=== PATIENT | female | born 1965 | race Hispanic/Latino ===

== ENCOUNTER 2022-04-06 20:07 | Emergency (ER) | payer MEDICARE, OTHER ==
[~2022-04-06] VITALS: Ht 154.9 cm; Wt 87.5 kg
[~2022-04-06 20:07] MED LIST: AMLODIPINE BESYL5 MG PO; FUROSEMIDE40 MG PO; LISINOPRIL10 MG PO; OMEPRAZOLE40 MG PO; PRAVASTATIN SOD20 MG PO
[2022-04-06] MEDS ORDERED: DIPHENHYDRAMINE HCL INJ 50 MG/ML VIAL IV ONE (21:30)
[2022-04-06] MEDS ORDERED: METHYLPREDNISOLONE SOD SUCC 125 MG/2ML VIAL IV ONE (21:30)
[2022-04-06 21:38] LABS: BASOPHILS % 0.6 % (0.0-1.0); EOSINOPHILS # (AUTO) 0.2 (0.0-0.4); EOSINOPHILS % 2.3 % (0.0-6.0); HEMATOCRIT 40.7 % (34.2-44.1); HEMOGLOBIN 13.2 g/dL (12.0-16.0); LYMPHOCYTES # (AUTO) 2.2 (1.0-3.2); MEAN CORPUSCULAR HEMOGLOBIN 30.8 pg (28-32); MEAN CORPUSCULAR HGB CONC 32.4 g/dL (31-35); MEAN CORPUSCULAR VOLUME 94.9 fL (81-99); MONOCYTES # (AUTO) 0.6 (0.2-0.8); MONOCYTES % 9.1 % (4.4-11.3); NEUTROPHILS # (AUTO) 3.4 (2.1-6.9); NEUTROPHILS % 53.7 % (38.7-80.0); PLATELET COUNT 268 x10e3/uL (140-360); RED BLOOD COUNT 4.29 x10e6/uL (3.6-5.1); RED CELL DISTRIBUTION WIDTH 12.5 % (11.7-14.4)
[2022-04-06 22:01] LABS: ANION GAP 14.4 mmol/L (8-16); CALCIUM 9.6 mg/dL (8.4-10.2); POTASSIUM 3.4 mmol/L (3.5-5.1)
== END 2022-04-06 22:28 | disposition home or self-care (01) ==
LOC: ER 20:16
DX: R21 Rash and other nonspecific skin eruption (principal); I10 Essential (primary) hypertension; E78.5 Hyperlipidemia, unspecified; Z79.899 Other long term (current) drug therapy
CPT/HCPCS: 36415; 80048; 85025; 99283

== ENCOUNTER 2022-04-07 06:49 | Observation (INO) | payer MEDICARE, OTHER ==
[~2022-04-07] VITALS: Ht 154.9 cm; Wt 86.2 kg
[2022-04-07] VITALS (7 sets, daily range): BP systolic 97–134; BP diastolic 65–73
[2022-04-07] MEDS ORDERED: GABAPENTIN 300 MG CAP ONE (07:17)
[2022-04-07] MEDS ORDERED: CELECOXIB 200 MG CAP ONE (07:17)
[2022-04-07] MEDS ORDERED: DEXAMETHASONE SOD PHOS 10 MG/1 ML VIAL ONE (07:17)
[2022-04-07] MEDS ORDERED: MORPHINE SULFATE/PF 1 MG/1 ML 10ML VIAL ONE (07:25)
[2022-04-07] MEDS ORDERED: TRANEXAMIC ACID 20 ML ONE (07:26)
[2022-04-07] MEDS ORDERED: SODIUM CHLORIDE 0.9% 500ML 500 ML ONE (07:26)
[2022-04-07] MEDS ORDERED: Vancomycin IV 1,000 MG ONE (07:26)
[2022-04-07] MEDS ORDERED: ROPIVACAINE 246.25 MG, EPINEPHRINE HCL 1:1000 1ML 0.5 MG, CLONIDINE HCL 0.08 MG, KETORO... INJ ONE ×5 (08:00)
[2022-04-07] MEDS ORDERED: HYDROCODONE/APAP 5MG-325MG TAB PO PRN (09:45)
[2022-04-07] MEDS ORDERED: HYDROCODONE/APAP 7.5MG-325MG 1 EA TAB PO PRN (09:45)
[2022-04-07] MEDS ORDERED: ZOLPIDEM TARTRATE 5 MG TAB PO PRN (09:45)
[2022-04-07] MEDS ORDERED: DIPHENHYDRAMINE HCL INJ 50 MG/ML VIAL IV PRN (09:45)
[2022-04-07] MEDS ORDERED: ONDANSETRON HCL INJ 2MG/ML 2ML 2 MG/ML VIAL IV PRN (09:45)
[2022-04-07] MEDS ORDERED: ACETAMINOPHEN 650 MG SUPP PR PRN (09:45)
[2022-04-07] MEDS ORDERED: DOCUSATE SODIUM 100 MG CAP PO PRN (09:45)
[2022-04-07] MEDS ORDERED: SODIUM CHLORIDE 0.9% 1000ML 1,000 ML IV SCH (11:30)
[2022-04-07] MEDS ORDERED: MIDAZOLAM HCL 2 MG/2 ML VIAL ONE (12:37)
[2022-04-07] MEDS ORDERED: FENTANYL CITRATE/PF 100MCG/2 ML INJ ONE (12:37)
[2022-04-07] MEDS ORDERED: DEXAMETHASONE SOD PHOS INJ 4 MG/ML SDV ONE (13:53)
[2022-04-07] MEDS ORDERED: LIDOCAINE HCL 2% LOCAL INJ 5 ML SDV VIAL INJ ONE (13:53)
[2022-04-07] MEDS ORDERED: ONDANSETRON HCL INJ 2MG/ML 2ML 2 MG/ML VIAL ONE (13:53)
[2022-04-07] MEDS ORDERED: EPHEDRINE SULFATE INJ 50 MG/ML VIAL ONE (13:53)
[2022-04-07] MEDS ORDERED: POVIDONE IODINE 0.05% 0.05 % ML PO ONE (13:53)
[2022-04-07] MEDS ORDERED: SEVOFLURANE INHAL SOLN 250 ML PEN BTL ONE (13:53)
[2022-04-07] MEDS ORDERED: PROPOFOL IV EMULSION 10 MG/ML 20 ML VIAL ONE (13:53)
[2022-04-07] MEDS: ASPIRIN 325 MG TAB PO SCH (16:59)
[2022-04-07] MEDS: CELECOXIB 200 MG CAP PO SCH (16:59)
[2022-04-08] VITALS: BP 103/66
[2022-04-08] MEDS ORDERED: SODIUM CHLORIDE 0.9% 1000ML 1,000 ML IV SCH (03:00)
[2022-04-08 04:00] VITALS: BP 97/65
[2022-04-08 05:02] LABS: BASOPHILS % 0.1 % (0.0-1.0); HEMATOCRIT 31.9 % (34.2-44.1); HEMOGLOBIN 10.3 g/dL (12.0-16.0); LYMPHOCYTES # (AUTO) 1.1 (1.0-3.2); LYMPHOCYTES % 10.1 % (18.0-39.1); MEAN CORPUSCULAR HGB CONC 32.3 g/dL (31-35); MEAN CORPUSCULAR VOLUME 96.1 fL (81-99); MONOCYTES # (AUTO) 0.8 (0.2-0.8); MONOCYTES % 7.3 % (4.4-11.3); NEUTROPHILS # (AUTO) 8.8 (2.1-6.9); NEUTROPHILS % 82.1 % (38.7-80.0); PLATELET COUNT 217 x10e3/uL (140-360); RED BLOOD COUNT 3.32 x10e6/uL (3.6-5.1); RED CELL DISTRIBUTION WIDTH 12.4 % (11.7-14.4)
[2022-04-08 05:29] LABS: ANION GAP 14.7 mmol/L (8-16); CALCIUM 8.6 mg/dL (8.4-10.2); CREATININE, SERUM 0.86 mg/dL (0.57-1.11); MAGNESIUM 2.2 MG/DL (1.3-2.1); PHOSPHORUS 3.7 MG/DL (2.3-4.7); POTASSIUM 3.7 mmol/L (3.5-5.1)
[2022-04-08 08:59] VITALS: BP 111/70
[2022-04-08] MEDS: ASPIRIN 325 MG TAB PO SCH ×2 (09:09→09:17)
[2022-04-08] MEDS: AMLODIPINE BESYLATE 5 MG TAB PO SCH ×2 (09:09→09:18)
[2022-04-08] MEDS: CELECOXIB 200 MG CAP PO SCH ×2 (09:09→09:17)
[2022-04-08] MEDS: PRAVASTATIN 20 MG TAB PO SCH ×2 (09:09→09:18)
[2022-04-08] MEDS: FUROSEMIDE 40 MG TAB PO SCH ×2 (09:09→09:19)
[2022-04-08] MEDS: LISINOPRIL 10 MG TAB PO SCH ×2 (09:10→09:18)
[2022-04-08] MEDS: PANTOPRAZOLE SOD 40 MG TABEC PO SCH ×2 (09:10→09:17)
[2022-04-08] MEDS: LISINOPRIL 2.5 MG TAB PO SCH ×2 (09:10→09:18)
[2022-04-08] MEDS ORDERED: ACETAMINOPHEN 1000 MG/100 ML IV PRN (09:45)
[2022-04-08] MEDS ORDERED: ASPIRIN81 MG PO (11:25)
== END 2022-04-08 11:50 | disposition home or self-care (01) ==
LOC: OR 06:49 → PACU V 09:37 → MED/SURG 11:02
PROVIDERS: ADMIT Specialist; ATTEND Specialist
DX: M16.11 Unilateral primary osteoarthritis, right hip (principal); E78.5 Hyperlipidemia, unspecified; K21.9 Gastro-esophageal reflux disease without esophagitis; R11.2 Nausea with vomiting, unspecified; H54.7 Unspecified visual loss
CPT/HCPCS: 0223U; 27130; 36415 ×2; 72170; 80048; 83735; 84100; 85025; 86850; 86900; 86920; 93005; 94799; 97110; 97116 ×2; 97161; 97530 ×2; G0378 ×2; J0171; J0690 ×2; J1100 ×2; J1885; J2001; J2250; J2405; J2704; J2795; J3010; J3370; J7030 ×2; J7040; S0164